=== PATIENT | female | born 1970 | race Caucasian/White ===

== ENCOUNTER → 2020-11-13 08:24 | Outpatient (CLI) | payer OTHER, SELFPAY ==
--- NOTE | ~2020-11-13 | US_ITS ---
EXAMINATION: US retroperitoneal duplex ltd EXAM DATE: 11/13/2020 09:50 INDICATION: Benign essential HTN, Hyper-reninism. TECHNIQUE: Multiple grayscale and Doppler images of the kidneys and renal arteries were obtained. T here is no prior study for comparison. FINDINGS: Renal arteries interrogated in several segments from origin to hilum. RIGHT RENAL ARTERY Proximal segment: 104 cm/s. Mid segment: 121 cm/s. Distal segment: 98 cm/s. LEFT RENAL ARTERY Proximal segment: 96 cm/s. Mid segment: 92 cm/s. Distal segment: 60 cm/s. IMPRESSION: 1. Renal artery Doppler velocities within normal limits. Reviewed, dictated and finalized at location B. 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
== END ==
DX: E26.1 Secondary hyperaldosteronism (principal); I10 Essential (primary) hypertension
CPT/HCPCS: 93976

== ENCOUNTER → 2021-05-04 12:38 | Outpatient (CLI) | payer OTHER, SELFPAY ==
--- NOTE | ~2021-05-04 | US_ITS ---
US transvaginal DATE: 05/04/2021 13:33 INDICATION: Left ovarian cyst TECHNIQUE: Real-time imaging via transvaginal approach COMPARISON: 03/03/2019 pelvic ultrasound FINDINGS: The uterus is absent consistent with history of hysterectomy in 2016. Minimal residual 0.9 x 1.6 x 1 cm. Left ovary 1.5 x 1 x 1.7 cm. No ovarian mass lesion is evident. No abnormal pelvic mass or abnormal p elvic fluid collection is evident. IMPRESSION: Status post hysterectomy; no pelvic mass or abnormal pelvic fluid collection is detected Reviewed, dictated and finalized at [facility]. Reviewed, dictated and finalized at location [facility]. IMPRESSION: Status post hysterectomy; no pelvic mass or abnormal pelvic fluid c ollection is detected
== END ==
PROVIDERS: PCP Nurse Practitioner; Visit Provider Nurse Practitioner
DX: N83.202 Unspecified ovarian cyst, left side (principal)
CPT/HCPCS: 76830